=== PATIENT | male | born 1970 | race Caucasian/White ===

== ENCOUNTER → 2023-11-15 14:03 | Outpatient (REF) | payer BC, SELFPAY | LOC: RAD 14:03 | PROVIDERS: ATTENDING PHYSICIAN Orthopaedic Surgery; FAMILY PHYSICIAN Nurse Practitioner Family | DX: Z13.89 Encounter for screening for other disorder (principal) | CPT/HCPCS: 70030 ==

== ENCOUNTER 2024-02-21 16:16 | Inpatient (IN) | payer BC, SELFPAY ==
[2024-02-21 11:39] VITALS: BP 143/73
--- NOTE | 2024-02-21 12:58 | ED.GENMED ---
History of Present Illness
General
Chief Complaint: Anal/Rectal Problem
Source: patient
Exam Limitations: none
Time Seen by Provider: 02/21/24 12:31
Nursing documentation reviewed up to this point in time: agreed with
History of Present Illness
History of Present Illness:
53-year male presents with pain in his rectum with some bloody drainage
Just finished a course of what sounds like Augmentin was seen in the colorectal surgery office today concern for an abscess sent here for CAT scan for evaluation no fever today thinks he had some fever in the evening a few nights ago no vomiting not
diabetic he works in [place] no prior rectal issues
Past History
Past History
ED Past Medical History: None
ED Past Surgical History: None
Social History
Tobacco: Non-smoker
Alcohol: None
Drug: None
Personal:
Living: with family
Employment: Employed
Review of Systems
Review of Systems
All Other Systems: Not applicable
Constitutional: Reports fever (Few days ago) and fatigue
EENT: Reports no symptoms
ABD/GI: Reports bloody stools and other (Bloody drainage near his rectum)
: Reports no symptoms
Phy Exam
Physical Exam
Physical Exam:
Physical Exam
General: no apparent distress, not acutely ill
Neck: No jaundice
Heart: s1/s2 regular rate and rhythm, no murmur. equal radial pulses.
Lungs: no acute respiratory distress. clear bilaterally
Rectal no obvious abscess in the perineum
Neuro: alert and oriented. no focal neurological deficits
Skin: no rash
Psychiatric: well kept. interactive and cooperative
Extremities: no edema.
Course
Orders/Labs/Results
Orders:
Orders
02/21/24 12:44
CT Pelvis With Iv Contrast Urgent
Comment:
Reason For Exam: rectal pain, concern for abscess
02/21/24 13:42
Complete Blood Count/With Diff Urgent
Comprehensive Metabolic Panel Urgent
Abnormal Lab Results
02/21/24
13:42
Abs Immat Gran (auto) 0.1 H 10^3/uL
(0-0.05)
Immature Gran % 0.9 H %
(0-0.5)
Glucose 112 H mg/dl
(70-99)
02/21/24 13:42
02/21/24 13:42
Vital Signs
Initial and Last Documented VS:
Initial Vital Signs
Temp Pulse Resp BP Pulse Ox
98.3 F 72 18 143/73 99
02/21/24 11:39 02/21/24 11:39 02/21/24 11:39 02/21/24 11:39 02/21/24 11:39
Last Documented Vital Signs
Temp Pulse Resp BP Pulse Ox
98.3 F 72 18 143/73 99
02/21/24 11:39 02/21/24 11:39 02/21/24 11:39 02/21/24 11:39 02/21/24 11:39
MDM/Problems Addressed
Differential Diagnosis Includes:
Perirectal abscess perianal abscess horseshoe abscess, internal hemorrhoid etc.
MDM/Problems Addressed:
Rectal pain and drainage
*Radiology
Radiology exam reviewed: radiology read reviewed
*Pulse Oximetry
Patient hypoxic: no
*Critical Care Note
Total Time (30-74mins, 75-104mins- exclusive of procedures): Not Applicable
Update Note
Update Note:
Patient has been on antibiotics, will order suggested CT scan touch base with referring colorectal surgeon
CT report noted patient updated reviewed with colorectal surgery will be admitted for antibiotics and consideration for exam under anesthesia
ED Attending Note
-
Portions of this chart may have been created with voice recognition software.� Occasional wrong word or��sound alike� substitutions may have occurred due to the inherent limitations of voice recognition software.
Discharge Plan
Departure
Patient Disposition: Admit
Date of Disposition: 02/21/24
Time of Disposition: 15:43
Admit to: Med/Surg
Presentation/result/management discussed w/ accepting MD/DO: CRS
Condition: Good
Discharge Problem:
Abscess, perianal
Prescriptions:
No Action
ibuprofen [Motrin IB] 200 mg Tablet
800 mg PO BIDPRN PRN (Reason: mild pain)
Referrals:
Anitha Chang CRNP [Family Provider] -
Interventions
Interventions:
*Risk Screen - Suicide Last Done: 02/21/24 11:39
*General Assessment Last Done: 02/21/24 13:45
*Neglect/Abuse Screening Last Done: 02/21/24 11:39
*ED COVID-19 Vaccine History Last Done: 02/21/24 11:39
TS-Tnqenn-Zubvupyhls Assessment Last Done: 02/21/24 13:22
ED-Skin Assessment Last Done: 02/21/24 13:22
Discharge Date and Time
Print Language: MALTESE
[2024-02-21 13:54] LABS: % Basophils 0.5 % (0-2); % Eosinophils 1.7 % (0-6); % Immature Granulocytes 0.9 % (0-0.5); % Lymphocytes 22.1 % (20.5-51.1); % Monocytes 7.2 % (1.7-9.3); % Neutrophils 67.6 % (42.2-75.2); Absolute Eosinophils 0.2 10^3/uL (0-0.7); Absolute Immature Granulocytes 0.1 10^3/uL (0-0.05); Absolute Lymphocytes 1.9 10^3/uL (1.2-3.4); Absolute Monocytes 0.6 10^3/uL (0.1-0.6); Absolute Neutrophils 5.8 10^3/uL (1.4-6.5); Hematocrit 40.2 % (39.0-52.0); Hemoglobin 14.2 g/dL (13.0-18.0); Mean Corp Hgb Conc. 35.3 g/dL (33.0-37.0); Mean Corpuscular Volume 84.8 fL (80.0-94.0); Mean Platelet Volume 10.4 fL (7.4-10.4); Nucleated Red Blood Cells % 0 % (-); Platelet Count 333 10^3/uL (130-400); Red Blood Cell Count 4.74 10^6/uL (4.70-6.10); Red Cell Dist. Width 12.5 % (11.5-14.5); White Blood Cell Count 8.6 10^3/uL (4.8-10.8)
[2024-02-21 14:09] LABS: ALT (SGPT) 23 U/L (0-50); AST (SGOT) 25 U/L (17-59); Albumin 4.2 g/dl (3.5-5.0); Alkaline Phosphatase 77 U/L (38-126); Blood Urea Nitrogen 20 mg/dl (9-20); Calcium 9.3 mg/dl (8.4-10.2); Carbon Dioxide 27 mmol/L (22-30); Chloride 106 mmol/L (98-107); Glucose 112 mg/dl (70-99); Potassium 4.2 mmol/L (3.5-5.1); Sodium 139 mmol/L (135-145); Total Bilirubin 0.5 mg/dl (0.2-1.3); eGFR > 60.00
--- NOTE | 2024-02-21 16:00 | W.PN.ADMIT ---
Progress Note - Admit
Progress Note - Admit
Full admit to be dictated.
Assessment/Plan: 53 yo M with persistent anal pain for a month s/p course of Augmentin with CT showing R sided mainly air filled perinal collection/abscess. Admits that a bit better today than yesterday and that he does occasionally pass transanal
mucus/blood. Vitals and labs unremarkable. Will admit for the benefit of IV antibiotics and tentatively post him for OR tomorrow afternoon for EUA with I and D. I discussed with him that he will be reassessed tomorrow am prior to committing to
such an operation. He is agreeable to the above.
--- NOTE | 2024-02-21 16:45 | PTCARENOTE ---
patient arrived to floor via stretcher, ambulatory independently transferring from stretcher to room, denies need for analgesia for c/o rectal pain, no rectal bleeding or mucus at present, vss, oriented to room and use of call pichardo, please see full
shift nursing assessment for further info, will continue to monitor.
[2024-02-21 16:52] VITALS: BP 126/70
[2024-02-21] MEDS: NORMOSOL-R 1000 IV (17:32)
[2024-02-21] MEDS: ZOSYN 50 IV ×2 (17:32→23:15)
[2024-02-21] MEDS: TYLENOL 650 MG PO (18:19)
--- NOTE | 2024-02-21 19:00 | PTCARENOTE ---
sequential pump and KEVIN stockings ordered from [facility], will apply to patient after I receive them.
[2024-02-21 23:19] VITALS: BP 116/64
[2024-02-22] MEDS: ZOSYN 50 IV ×2 (05:42→11:11)
[2024-02-22 06:17] LABS: Blood Urea Nitrogen 17 mg/dl (9-20); Calcium 9.1 mg/dl (8.4-10.2); Carbon Dioxide 27 mmol/L (22-30); Chloride 105 mmol/L (98-107); Estimated Creatinine Clearance 124 ml/min; Glucose 104 mg/dl (70-99); Potassium 4.3 mmol/L (3.5-5.1); Sodium 139 mmol/L (135-145); eGFR > 60.00
[2024-02-22 07:30] VITALS: BP 117/66
[2024-02-22 07:37] LABS: % Basophils 0.5 % (0-2); % Eosinophils 2.3 % (0-6); % Immature Granulocytes 0.9 % (0-0.5); % Lymphocytes 21.4 % (20.5-51.1); % Monocytes 7.8 % (1.7-9.3); % Neutrophils 67.1 % (42.2-75.2); Absolute Eosinophils 0.2 10^3/uL (0-0.7); Absolute Immature Granulocytes 0.1 10^3/uL (0-0.05); Absolute Lymphocytes 1.8 10^3/uL (1.2-3.4); Absolute Monocytes 0.6 10^3/uL (0.1-0.6); Absolute Neutrophils 5.5 10^3/uL (1.4-6.5); Hematocrit 40.1 % (39.0-52.0); Hemoglobin 13.9 g/dL (13.0-18.0); Mean Corp Hgb Conc. 34.7 g/dL (33.0-37.0); Mean Corpuscular Hgb 29.9 pg (27.0-31.0); Mean Corpuscular Volume 86.2 fL (80.0-94.0); Mean Platelet Volume 10.4 fL (7.4-10.4); Nucleated Red Blood Cells % 0 % (-); Platelet Count 304 10^3/uL (130-400); Red Blood Cell Count 4.65 10^6/uL (4.70-6.10); Red Cell Dist. Width 12.7 % (11.5-14.5); White Blood Cell Count 8.2 10^3/uL (4.8-10.8)
--- NOTE | 2024-02-22 09:36 | W.PN.CRS1 ---
Today's Communication / Plan
-
OR today
Assessment/Plan
-
Perianal abscess
1. For OR today. Remain NPO.
2. Trend labs/Vitals.
3. Continue Zosyn/IVFs.
Subjective Data
Subjective Data
Date of Service: February 22, 2024
Patient states he still has some pain. He had bleeding and mucus in a pad overnight. He denies fevers or chills.
Objective Data
-
Vital Signs
Temp Pulse Resp BP Pulse Ox
98.2 F 54 16 117/66 99
02/22/24 07:30 02/22/24 07:30 02/22/24 07:30 02/22/24 07:30 02/22/24 07:30
Intake & Output
02/21/24 02/22/24 02/23/24
06:59 06:59 06:59
Other:
Number of approximated SMALL 3
amounts of urine
Lab Results
02/22/24 05:18
02/22/24 05:18
Physical Exam
-
General: No Acute Distress and AOx3
Abdomen: Soft, Non Distended and Non Tender
Skin: Warm and Dry
[2024-02-22] MEDS: NORMOSOL-R 1000 IV (11:11)
--- NOTE | 2024-02-22 13:53 | CM ---
Alert awake oriented patient who lives with his Jelena who lives in a 2 story home with 0 step to enter and 14 steps to bed and bathroom. He is independent in driving and in all activities of daily living.He was offered VN he declined need.He
is for surgery today. His will drive him home at dc.
No VN hx / No SNF history
Pharmacy [facility]
PCP DR Chang
PLAN Home Declined VN
[2024-02-22 16:21] VITALS: BP 119/74
--- NOTE | 2024-02-22 16:23 | W.IMMPOSTOP ---
Addendum entered and electronically signed by Lewis Sykes MD 02/22/24 16:35:
Updated patient's .
Regular diet.
Ok for discharge from floor.
Original Note:
Surgical Immed Post Op Note
-
Primary Surgeon: Silvino Sykes MD
Assisting Surgeon: none
Pre-op Diagnosis: perirectal abscess
Post-op Diagnosis: same
Procedure Performed: incision and drainage perirectal abscess
Anesthesia Type: MAC plus local
Specimen / Cultures: abscess cultures
Estimated Blood Loss: 10 cc
Complications: no immediate
Operative Findings: R anterior perirectal abscess
Pezzer catheter drain in place with gauze and tape overlying.
Will send back to room.
[2024-02-22 16:30] VITALS: BP 132/82
--- NOTE | 2024-02-22 16:43 | W.DS.TRANS ---
DC Summary - [employer]
-
Discharge Instructions:
Diet No restrictions
Activity No strenuous activity
Additional Activity Recommend not working for a week.
Driving Restrictions No driving for 1 week
Bathing Restrictions OK to Shower
Wound Care Sitz baths twice a day for 10 minutes at a time
with warm water. Do this for one week.
Wear a pad in your underwear as needed.
Instructions: How to Do a Sitz Bath
Stand-Alone Forms:
Changes to Home Medications: Yes
Discharge Medications:
DC Medications w/original date entered in [employer]
ibuprofen 200 mg tablet (Motrin IB) 800 mg PO BIDPRN PRN mild pain 02/21/24
amoxicillin 875 mg-potassium clavulanate 125 mg tablet 1 tab PO BID 1 week #14 tabs 02/22/24
Home Medication Changes
amoxicillin 875 mg-potassium clavulanate 125 mg tablet 1 tab PO BID 1 week #14 tabs 02/22/24
Pending Results: Yes (abscess culture)
[2024-02-22 16:53] VITALS: BP 126/79
--- NOTE | 2024-02-22 17:07 | PTCARENOTE ---
pt returned from OR dressing CDI perianal area
[2024-02-22 17:16] VITALS: BP 118/62
[2024-02-22] MEDS: ZOSYN IV (18:05)
== END 2024-02-22 18:10 | disposition home or self-care (01) | DRG 346 ==
LOC: 3 WEST ACU 16:16
PROVIDERS: ADMITTING PHYSICIAN Surgery; EMERGENCY PHYSICIAN Emergency Medicine; FAMILY PHYSICIAN Nurse Practitioner Family
PROC: 0D9P0ZZ Drainage of Rectum, Open Approach (ICD-10-PCS; 2024-02-22)
DX: K61.1 Rectal abscess (principal); Z79.899 Other long term (current) drug therapy
CPT/HCPCS: 72193; 80048; 80053; 85025; 87075; 99284; Q9967

== ENCOUNTER → 2024-05-24 08:37 | Outpatient (REF) | payer BC, SELFPAY | LOC: MRI 3T 08:37 | PROVIDERS: ATTENDING PHYSICIAN Physician Assistant | DX: K60.3 Anal fistula (principal) | CPT/HCPCS: 72197; A9575 ==